=== PATIENT | female | born 1985 | race Caucasian/White ===

== ENCOUNTER 2017-07-10 23:00 | Inpatient (IN) | payer MEDICAID ==
[~2017-07-10] VITALS: Ht 172.7 cm; Wt 86.2 kg
--- NOTE | ~2017-07-10 | HP ---
Unit #: [id number] #: [id number] Patient: JARRET WEINER [id number] [place] [address] [id number] MR#: [id number] NAME: JARRET WEINER ROOM: P209 Age: 32 Sex: F Admission Date: 07/11/2017 : 1985 Attending Physician: Aron Julien M.D. Admitting Physician: Aron Julien M.D. Primary Care Physician: Generic Doctor Not In System HISTORY AND PHYSICAL HISTORY OF PRESENT ILLNESS Patient is a 32-year-old female admitted to [address] [place] [address] on 07/11/2017 to detox from heroin. PAST MEDICAL HISTORY 1. Heroin abuse. 2. Depression. 3. Hypertension. 4. Hepatitis C. 5. Nicotine dependence. PAST SURGICAL HISTORY 1. Bilateral tubal ligation. 2. Cholecystectomy. SOCIAL HISTORY She is unemployed. She lives alone. She smoke one pack of cigarettes daily and uses one to one-half grams of heroin per day. FAMILY MEDICAL HISTORY Noncontributory. ALLERGIES No known drug allergies. CURRENT MEDICATIONS Include prazosin, Zoloft, Neurontin and Elavil. REVIEW OF SYSTEMS CONSTITUTIONAL: No fever or chills. HEENT: Denies any sore throat, ear pain or runny nose. CARDIOVASCULAR: Denies chest pain, irregular heart rhythm or palpitations. CHEST: Denies shortness of breath or cough. No hemoptysis. GASTROINTESTINAL: Denies nausea, vomiting, diarrhea or chronic constipation. ENDOCRINE: Denies history of increased thirst or urination. No recent significant weight loss or gain. GENITOURINARY: Denies dysuria, frequency, or hematuria. SKIN: Denies any rashes. HEMATOLOGIC: Denies history of increased bleeding or bruising. MUSCULOSKELETAL: Denies any hot, swollen joints. No generalized muscle pain. NEUROLOGIC: Denies problems with vision or speech. No frequent, severe Unit #: [id number] #: [id number] Patient: JARRET WEINER headaches. No numbness, tingling or weakness in any extremities. Denies loss of bladder or bowel control. PHYSICAL EXAM GENERAL: She is awake, alert and oriented in no acute distress. VITAL SIGNS: Temperature 98.1, heart rate 73, respiration 16, blood pressure 112/74. HEIGHT: 5'8". WEIGHT: 190 pounds. SKIN: Bruising of bilateral legs. HEENT: Normocephalic. TMs not viewed. Oral and nasal passages clear. Conjunctivae clear. PERRLA. EOMs intact. NECK: Supple without lymphadenopathy or thyromegaly. HEART: Regular rate and rhythm without murmur. LUNGS: Clear. ABDOMEN: Soft, nontender. : Not done. EXTREMITIES: No evidence of cyanosis, clubbing or edema. Moves all without focal deficit. NEUROLOGICAL: Grossly within normal limits. Cranial Nerves: II: Visual rodriguez are intact. III, IV AND : Extraocular movements are intact. Pupils are equal, round and reactive to light. V: Facial sensation is grossly normal. VII: Facial movements and expression are normal. VIII: Auditory acuity grossly intact. IX, X: Uvula is midline. Phonation is normal. XI: Patient shrugs shoulders and turns head normally. XII: Tongue protrudes in the midline. Sensory and Motor Function: Sensory and motor sensation is grossly normal. Motor: moves all extremities well. IMPRESSION 1. Psychiatric admission. 2. Heroin abuse. 3. Depression. 4. Hypertension. 5. Hepatitis C. 6. Nicotine dependence. RECOMMENDATIONS Psychiatric per psychiatrist. MEDICAL: No contraindication to participate in facility activities. MEDICAL PROGNOSIS Good. MEDICAL CONDITION Stable. Dictated by... Janine Koch A.P.R.N. Unit #: [id number] #: [id number] Patient: JARRET WEINER JORGE/jonathan TD: 07/11/2017 23:44 JOB #: [id number] HISTORY AND PHYSICAL Page 1 of 1 X JANINE KOCH APRN HISTORY AND PHYSICAL
--- NOTE | ~2017-07-10 | PN ---
Unit #: [id number] #: [id number] Patient: JARRET WEINER [id number] [facility] [address] [place] [address] [id number] I MR#: [id number] NAME: JARRET WEINER ROOM: P209 Age: 32 Sex: F Admission Date: 07/11/2017 : 1985 Attending Physician: Aron Julien M.D. Admitting Physician: Aron Julien M.D. Primary Care Physician: Generic Doctor Not In System [facility] PROGRESS NOTES DATE OF SERVICE 07/13/2017 DISCUSSION Mr. Weiner is a 32-year-old white female who was seen today. Chart was reviewed and case was discussed with staff. He has been anxious, withdrawn, depressed, and seclusive to himself. He reports not feeling good and having negative, intrusive thoughts and feelings of hopelessness and helplessness. Meanwhile she has been taking the medications and tolerating them fairly well with no reported side effects. MENTAL STATUS EXAMINATION Young white female who is casually dressed with fair personal hygiene, appears to be in no acute distress or discomfort. She was awake and alert on interaction with intact orientation. Her mood is anxious with congruent affect. She denies any suicidal or homicidal ideations. Her insight and judgment remain slightly impaired. TREATMENT PLAN 1. We will continue her on her current medications and treatment protocol. We will monitor her response to the medications and make further adjustments as needed. 2. We will continue to follow up. Dictated by... Aron Julien M.D. IAA/bzg TD: 07/14/2017 08:48 JOB #: [id number] Unit #: [id number] #: [id number] Patient: JARRET WEINER [facility] PROGRESS NOTES Page 1 of 1 X Aron Julien MD PROGRESS NOTE
--- NOTE | ~2017-07-10 | PA ---
Unit #: [id number] #: [id number] Patient: JARRET WEINER [id number] [facility] [address] [place] [address] [id number] I MR#: [id number] NAME: JARRET WEINER ROOM: P209 Age: 32 Sex: F Admission Date: 07/11/2017 : 1985 Date of Assessment: 07/11/2017 Attending Physician: Aron Julien M.D. Admitting Physician: Aron Julien M.D. Primary Care Physician: Generic Doctor Not In System PSYCHIATRIC ASSESSMENT DATE OF SERVICE 07/11/2017. IDENTIFYING DATA Ms. Weiner is a 32-year-old single white female, who is a resident of [place], [place], and was self-referred to the hospital on a voluntary basis. CHIEF COMPLAINT "I want to detox off heroin." HISTORY OF PRESENT ILLNESS Ms. Weiner is a 32-year-old white female with history of substance abuse and mood disorder, who came to the hospital stating that she wants to detox off heroin and that she is sick of it all and that she is super depressed and she hates that she is using and that she has not been able to stop and that she lost everybody in her family due to her substance abuse issues. She stated that she has been having thoughts of suicide by jumping off the walking bridge today and that is why she came to be assessed to get help. She does endorse increasing depression, anxiety, irritability, feelings of hopelessness and helplessness, and suicidal ideation with intent and plan, and as such, a recommendation for inpatient level of care for safety and stabilization was made and the patient was stepped up to the inpatient unit. SUBSTANCE ABUSE HISTORY The patient reports history of alcohol, cannabis, cocaine, amphetamine, and opioid abuse, and currently, opioids, particularly IV heroin has been her drug of choice as she reports that she has been using 1 to 1.5 g of heroin a day. PAST PSYCHIATRIC HISTORY The patient has had a history of inpatient chemical dependency and psychiatric treatment at [facility] and has had outpatient treatment in the past as well and has been diagnosed and treated for mood disorder and is currently on a combination of prazosin, Zoloft, and Neurontin. PAST MEDICAL HISTORY Hypertension and hepatitis C. ALLERGIES No known medication allergies. Unit #: [id number] #: [id number] Patient: JARRET WEINER PERSONAL AND SOCIAL HISTORY A 32-year-old white female, who reports that she is single, unemployed, and lives by herself and has poor social support social system. MENTAL STATUS EXAMINATION Young white female, who was casually dressed with fair personal hygiene, appears to be in no acute distress or discomfort. She was awake and alert on interaction with intact orientation to time, place, and person. Her mood was anxious and depressed with a congruent affect. Her speech was slow and restricted in content. Her thought processes were disorganized with some looseness of associations and suicidal ideations. Her insight and judgment remain significantly impaired. DIAGNOSTIC IMPRESSION Psychiatric: Major depressive disorder, recurrent, moderate, without psychotic features and opioid dependence, moderate, in acute withdrawals. Medical: None. Stressors: Moderate psychosocial stressors. TREATMENT PLAN 1. The patient has presented with a history of substance abuse and mood disorder and has been decompensating and will need inpatient hospitalization for safety and stabilization. We will start her back on her home medications. We will adjust the medications and monitor response. 2. Supportive therapy was provided to the patient. 3. Safe, structured, and nourishing environment will be provided. ESTIMATED LENGTH OF STAY 4 to 5 days. ABILITY TO HELP SELF Limited. WILLINGNESS TO HELP SELF The patient appears to be willing to help self. STRENGTHS 1. Communicative. 2. Cooperative. PROBLEMS 1. Chronic dysphoric symptoms. 2. Chronic chemical dependency. 3. Poor social support system. DISCHARGE CRITERIA This will be contingent upon the patient's ability to go through detox without having any significant withdrawal symptoms as well as her ability to stay safe to herself, particularly after discharge from the hospital. Dictated by... Bettye Munoz/april TD: 07/11/2017 15:23 Unit #: [id number] #: [id number] Patient: JARRET WEINER JOB #: [id number] PSYCHIATRIC ASSESSMENT Page 1 of 1 X Aron Julien MD PSYCHIATRIC ASSESSMENT
--- NOTE | ~2017-07-10 | PN ---
Unit #: [id number] #: [id number] Patient: JARRET WEINER [id number] [facility] [address] [place] [address] [id number] I MR#: [id number] NAME: JARRET WEINER ROOM: P209 Age: 32 Sex: F Admission Date: 07/11/2017 : 1985 Attending Physician: Aron Julien M.D. Admitting Physician: Aron Julien M.D. Primary Care Physician: Generic Doctor Not In System [facility] PROGRESS NOTES DATE 07/14/2017 DISCUSSION Ms. Weiner is a 32-year-old white female with substance abuse and mood disorder who was seen today and chart was reviewed and case was discussed with the staff. She has been anxious, withdrawn and rather seclusive to herself. Meanwhile, she has been cooperative with treatment recommendations as she has been taking the medications and tolerating them fairly well with no reported side effects. MENTAL STATUS EXAMINATION Young white female who was casually dressed with fair personal hygiene, appears to be in no acute distress or discomfort. She was awake and alert on interaction with intact orientation. Her mood was anxious with congruent affect. She denies any suicidal or homicidal ideations. Her insight and judgement remains slightly impaired. TREATMENT PLAN 1. We will continue her on her current medications and treatment protocol. We will monitor her response and make further adjustments as needed. 2. We will continue to follow up. Dictated by... Bettye Munoz/jonathan TD: 07/15/2017 00:54 JOB #: [id number] Unit #: [id number] #: [id number] Patient: JARRET WEINER [facility] PROGRESS NOTES Page 1 of 1 X Aron Julien MD X PROGRESS NOTE
--- NOTE | ~2017-07-10 | PN ---
Unit #: [id number] #: [id number] Patient: JARRET WEINER [id number] [facility] [address] [place] [address] [id number] I MR#: [id number] NAME: JARRET WEINER ROOM: P209 Age: 32 Sex: F Admission Date: 07/11/2017 : 1985 Attending Physician: Aron Julien M.D. Admitting Physician: Aron Julien M.D. Primary Care Physician: Generic Doctor Not In System [facility] PROGRESS NOTES DATE 07/12/2017 DISCUSSION Ms. Ms. Weiner is a 32-year-old white female who was seen today and chart was reviewed and case was discussed with the staff. She has been anxious, withdrawn and rather seclusive to herself. Meanwhile, she has been cooperative with treatment recommendations as she has been taking the medications and tolerating them fairly well with no reported side effects. MENTAL STATUS EXAMINATION Young white female who was casually dressed with fair personal hygiene, appears to be in no acute distress or discomfort. She was awake and alert on interaction with intact orientation. Her mood was anxious with congruent affect. Her speech was fluent and goal-directed. She denies any suicidal or homicidal ideations. Her insight and judgement remains slightly impaired. TREATMENT PLAN 1. We will continue her on her current medications and treatment protocol. We will monitor her response to the medication and make further adjustments as needed. 2. We will continue to follow up. Dictated by... Bettye Munoz/jonathan TD: 07/13/2017 21:56 JOB #: [id number] Unit #: [id number] #: [id number] Patient: JARRET WEINER PROGRESS NOTES Page 1 of 1 X Aron Juilen MD PROGRESS NOTE
[2017-07-12 10:03] LABS: BASOPHIL% 0.2 % (0-2.5); EOSINOPHIL# 0.1 X10e3 (0-0.7); EOSINOPHIL% 1.7 % (0.0-7.0); HEMATOCRIT 38.2 % (35.0-45.0); HEMOGLOBIN 12.4 gm/dL (12.0-16.0); LYMPHOCYTE# 2.3 X10e3 (1.0-3.5); LYMPHOCYTE% 35.3 % (17.0-45.0); MEAN CELL VOLUME 76.7 FL (83-96); MEAN CORPUSCULAR HEMOGLOBIN 24.9 PG (28-34); MEAN CORPUSCULAR HGB CONC 32.5 g/dL (30-36); MEAN PLATELET VOLUME 7.5 FL (6.5-11.5); MONOCYTE# 0.4 X10e3 (0-1.0); MONOCYTE% 5.8 % (3.0-12.0); NEUTROPHIL# 3.7 X10e3 (1.5-7.1); PLATELET COUNT 286 X10e3 (140-420); RED BLOOD COUNT 4.98 X10e (3.90-5.30); WHITE BLOOD COUNT 6.6 X10e3 (4.0-10.5)
[2017-07-12 10:04] LABS: DIFF IND NO
[2017-07-12 10:05] LABS: URINE APPEARANCE CLEAR; URINE BILIRUBIN NEG (NEG); URINE BLOOD NEG (NEG); URINE COLOR YELLOW; URINE GLUCOSE NEG (NEG); URINE KETONE NEG (NEG); URINE LEUKOCYTE ESTERASE 2+ (NEG); URINE NITRATE NEG (NEG); URINE PROTEIN NEG (NEG); URINE SPECIFIC GRAVITY 1.011 (1.003-1.035); URINE UROBILINOGEN 0.2 MG/DL (NEG)
[2017-07-12 10:08] LABS: U HYALINE CASTS AUWI 0-2 /[LPF]; URBCS1 AUWI 0-2 /[HPF] (0-2); URINE BACTERIA AUWI 2+ (NEGATIVE); URINE SQUAMOUS EPITHELIAL CELL FEW /[HPF]
[2017-07-12 10:15] LABS: AMPHETAMINE NEG (NEG); BARBITURATES NEG (NEG); BENZODIAZEPINES NEG (NEG); COCAINE NEG (NEG); MARIJUANA NEG (NEG); OPIATES POS (NEG); TRICYCLIC ANTIDEPRESSANTS POS (NEG); U METHADONE NEG (NEG)
[2017-07-12 10:32] LABS: ALBUMIN SERUM 3.9 g/dL (3.5-5.0); BILIRUBIN,TOTAL 0.2 mg/dL (0.2-2.0); BUN/CREATININE RATIO 18.57; CALCIUM SERUM 9.6 mg/dL (8.4-10.2); CREATININE SERUM 0.7 mg/dL (0.6-1.4); GLOM FILT RATE Estimated 114.6 mL/min (>60); POTASSIUM 4.2 mmol/L (3.5-5.1); PROTEIN TOTAL SERUM 7.6 g/dL (6.0-8.3)
== END 2017-07-15 11:55 | DRG 885 ==
LOC: P2S 07-11 02:35
PROVIDERS: Psychiatry & Neurology Psychiatry
PROC: HZ2ZZZZ Detoxification Services for Substance Abuse Treatment (ICD-10-PCS; principal; 2017-07-11)
DX: F33.1 Major depressive disorder, recurrent, moderate (principal); I10 Essential (primary) hypertension; F11.23 Opioid dependence with withdrawal; F17.210 Nicotine dependence, cigarettes, uncomplicated
CPT/HCPCS: 80053; 80307; 81003; 85025; 86592